=== PATIENT | female | born 1940 | race Caucasian/White ===

== ENCOUNTER → 2017-07-08 | Outpatient (CLI) | payer OTHER | LOC: FCPNEURO 23:30 | PROVIDERS: ATTEND Psychiatry & Neurology Sleep Medicine | DX: G47.33 Obstructive sleep apnea (adult) (pediatric) (principal) ==

== ENCOUNTER → 2017-08-05 | Outpatient (CLI) | payer OTHER | LOC: BHFA 14:45 | PROVIDERS: ATTEND Internal Medicine | DX: R00.2 Palpitations (principal); R01.1 Cardiac murmur, unspecified ==

== ENCOUNTER 2018-05-13 07:30 | Observation (INO) | payer OTHER ==
--- NOTE | 2018-05-09 08:54 | GHP ---
[f rep st] PREOP HISTORY AND PHYSICAL DATE OF ADMISSION: 05/13/2018 She will be an a.m. admission for surgery at [facility] on May 13, 2018. PROBLEM: Left knee arthritis. HISTORY OF PRESENT ILLNESS: The patient is a 77-year-old woman admitted for a left total knee arthro plasty. She has had progressive pain in her left knee for the past year. She has advanced medial co mpartment degenerative arthritis. Dr. oPrtillo did her right total arthroplasty in 2008. Her left knee is painful to walk and climb stairs. She is using Aleve. PAST MEDICAL HISTORY: She has angina. She has been worked up by her agriculturist and has been clear ed for surgery. She is also treated for hypertension. No history of DVT, hepatitis, MRSA infection, or bleeding problems. She had a sleep study and was told that she had mild sleep apnea but she did not as need a CPAP machine. MEDICATIONS: She takes a baby aspirin daily. Other medications: Lisinopril 5 mg per day, hydrochlo rothiazide 12.5 mg per day, metoprolol 25 mg per day. ALLERGIES: She has a questionable allergy to sulfa as a child. Metal allergy: None. Latex allergy : None. SOCIAL HISTORY: The patient does not smoke cigarettes and occasionally drinks alcohol. She is retir ed. She is a . She has a daughter in the area who is going to help her. FAMILY HISTORY: Positive for heart disease. PHYSICAL EXAMINATION: VITAL SIGNS: Height 5 feet 7 inches. Weight 150 pounds. BMI 23.5. EYES: C onjunctivae and sclerae are clear. Pupils are round and reactive. MOUTH: Good oral hygiene. No lo ose teeth. CHEST: Clear. HEART: Regular rhythm, no murmurs. EXTREMITIES: Pertinent findings [place] ited to her left knee. She has a small effusion. She lacks 5 degrees of full extension and flexes t o 110 degrees. She has mild pseudolaxity of her medial collateral ligament. IMAGING: Her films show advanced medial compartment degenerative arthritis of her left knee with mil d varus alignment. She has a properly sized right total arthroplasty on the right. IMPRESSION ON ADMISSION: 1. Left knee advanced medial compartment degenerative arthritis. 2. Nine years status post right total arthroplasty. 3. Treatment for hypertension. 4. History of coronary artery disease. PLAN: She will undergo a left total knee arthroplasty. The surgery has been described to her, inclu ding the risks, complications, expectations, and recovery time. I have stressed the importance of po stoperative physical therapy. I have advised her that approximately 85% of people get a very good re sult with a total knee replacement. A small percentage of people do not. All her questions have bee n answered and she consents to surgery. /[id number]/MODL
[~2018-05-13 07:30] MED LIST: POVIDONE-IODINE 20 ML in SODIUM CL IRRIG SOLUTION 500 ML IRR ONE; ROPIVACAINE 0.2% 80 MG, EPINEPHrine 0.2 MG, KETOROLAC TROMETHAMINE 30 MG in SYRINGE 0 ML IU ONE; TRANEXAMIC ACID 1,000 MG in NS 100 ML IV ONE; TRANEXAMIC ACID 3,000 MG in NS (SYRINGE) 50 ML IRR ONE
[2018-05-13] MEDS ORDERED: ONDANSETRON 4 MG/2 ML VIAL IVP ONE (07:48)
[2018-05-13] MEDS ORDERED: ceFAZolin 2 GM/DEXTROSE 100 ML IV ONE (07:48)
[2018-05-13] MEDS ORDERED: ACETAMINOPHEN 325 MG TAB PO ONE (07:48)
[2018-05-13] MEDS ORDERED: FAMOTIDINE 20 MG TAB PO ONE (07:48)
[2018-05-13] MEDS ORDERED: GABAPENTIN 300 MG CAP PO ONE (07:48)
[2018-05-13] MEDS ORDERED: DEXAMETHASONE 4 MG/ML VIAL IVP ONE (07:48)
[2018-05-13] MEDS ORDERED: LR 1,000 ML IV ONE (07:50)
[2018-05-13] MEDS ORDERED: VANCOMYCIN 1 GM VIAL ONE (09:00)
[2018-05-13] MEDS ORDERED: ceFAZolin 1 GM/5 ML SYR ONE (09:04)
[2018-05-13] MEDS ORDERED: LIDOCAINE 2% 100 MG/5 ML SYR ONE (09:09)
[2018-05-13] MEDS ORDERED: PROPOFOL/EMULSION 500 MG/50 ML BOTTLE IV ONE (09:09)
[2018-05-13] MEDS ORDERED: BUPIVACAINE/DEXTROSE 7.5MG/ML 2 ML SPINAL AMP SP ONE (09:12)
--- NOTE | 2018-05-13 09:17 | PDANEPAE ---
ANE History of Present Illness left knee OA ANE Past Medical History - Cardiovascular History Hx Hypertension: Yes Hx Arrhythmias: No Hx Chest Pain: No Hx Coronary Artery / Peripheral Vascular Disease: No Hx CHF / Valvular Disease: No Hx Palpitations: Yes Cardiovascular History Comment: HYPERLIPIDEMIA. HX OF LIFE LONG PALPITATIONS. 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 ARTHRITIS - Chronic Pain History Chronic Pain: Yes (LEFT KNEE) - Surgical History Prior Surgeries: 09/27/08 RIGHT TKA WITH OSAMR ANE Review of Systems Review of systems is: negative Review of Systems: - Exercise capacity METS (RN): 3 METS ANE Patient History - Allergies Allergies/Adverse Reactions: acetaminophen [From Tylenol] Allergy (Verified 05/13/18 09:48) severe itching Sulfa (Sulfonamide Antibiotics) Allergy (Verified 05/13/18 09:48) POSSIBLE ALLERGY - Home Medications Home medications: home medication list seen and reviewed Home Medications: Hydrochlorothiazide 12.5 mg PO DAILY 07/10/09 [Last Taken 05/12/18 08:00] Lisinopril 5 mg PO DAILY 07/10/09 [Last Taken 05/12/18 08:00] Aspirin 81mg (*) 05/06/18 [Last Taken 05/06/18] Herbals/Supplements -Info Only 05/06/18 [Last Taken 05/06/18] Metoprolol Tartrate 05/06/18 [Last Taken 05/11/18 20:00] - NPO status NPO Since - Liquids (Date): 05/13/18 NPO Since - Liquids (Time): 04:30 NPO Since - Solids (Date): 05/12/18 NPO Since - Solids (Time): 19:00 - Anes Hx Anes Hx: no prior problems - Smoking Hx Smoking Status: Never smoked - Alcohol Use Alcohol Use: None - Family Anes Hx Family Hx Anesthesia Complications: NONE ANE Labs/Vital Signs - Vital Signs Blood Pressure: 164/85 Heart Rate: 65 Respiratory Rate: 18 O2 Sat (%): 97 Height: 170.18 cm Weight: 68.039 kg ANE Physical Exam - Airway Neck exam: FROM Mallampati Score: Class 2 Mouth exam: normal dental/mouth exam - Pulmonary Pulmonary: no respiratory distress - Cardiovascular Cardiovascular: regular rate and rhythym - ASA Status ASA Status: II ANE Anesthesia Plan Anesthesia Plan: spinal Regional Anesthesia: continuous NB, adductor canal FNB
[2018-05-13] MEDS ORDERED: MIDAZOLAM 2 MG/2 ML VIAL ONE (10:00)
[2018-05-13] MEDS ORDERED: MIDAZOLAM 2 MG/2 ML VIAL IVP ONE (10:04)
--- NOTE | 2018-05-13 10:10 | PDHPUP ---
History & Physical Update H&P update statement: This history and physical update is based on an assessment of the patient which was completed after admission or registration (within 24 hours), but prior to the surgery/procedure. H&P update: H&P reviewed & patient examined, no change in patient's condition since H&P completed
[2018-05-13] MEDS ORDERED: ROPIVACAINE HCL 100 MG/20 ML INJ ONE (10:38)
--- NOTE | 2018-05-13 10:44 | POSTANESTH ---
Post Anesthetic Evaluation Cardiovascular Status: Normal, Stable Respiratory Status: Normal, Stable Level of Consciousness/Mental Status: Can Participate in Eval, Alert and Oriented Pain Control: Adequate, Prn Tx Ordered Nausea/Vomiting Control: Adequate, Prn Tx Ordered Complications Possibly Related to Anesthesia: None Noted
[2018-05-13] MEDS ORDERED: fentaNYL 100 MCG/2 ML INJ ONE ×2 (10:47→12:29)
[2018-05-13] MEDS ORDERED: PROPOFOL 200 MG/20 ML VIAL ONE (11:08)
--- NOTE | 2018-05-13 11:44 | POSTOPPROG ---
Post Op Note Date of Operation: 05/13/18 Surgeon: Arnie Cardoso Salesperson Burial Needs: Thais Anesthesiologist: Becky Anesthesia: IV Sedation, Spinal Post-op Diagnosis: left knee arthritis Procedure: R TKA Inf/Abcess present in the surg proc area at time of surgery?: No EBL: 50-100 (Adductor canal block in PACU with indwelling catheter.)
[2018-05-13] MEDS ORDERED: MAGNESIUM HYDROXIDE 30 ML UDCUP PO PRN (12:09)
[2018-05-13] MEDS ORDERED: ONDANSETRON DISINTEGRATING 4 MG TAB PO PRN (12:09)
[2018-05-13] MEDS ORDERED: POLYETHYLENE GLYCOL 3350 17 GM PKT PO PRN (12:09)
[2018-05-13] MEDS ORDERED: TEMAZEPAM 15 MG CAP PO PRN (12:09)
[2018-05-13] MEDS ORDERED: diphenhydrAMINE 25 MG CAP PO PRN (12:09)
[2018-05-13] MEDS ORDERED: CYCLOBENZAPRINE 10 MG TAB PO PRN (12:09)
[2018-05-13] MEDS ORDERED: DIPHENOXYLATE/ATROPINE LOMOTIL 1 TAB PO PRN (12:09)
[2018-05-13] MEDS ORDERED: LACTULOSE 20 GM/30 ML UDCUP PO PRN (12:09)
[2018-05-13] MEDS ORDERED: PROMETHAZINE HCL 25 MG/ML INJ IVP PRN (12:09)
[2018-05-13] MEDS ORDERED: BISACODYL 10 MG SUPP PR PRN (12:09)
[2018-05-13] MEDS ORDERED: PROMETHAZINE HCL 25 MG SUPPR PR PRN (12:09)
[2018-05-13] MEDS ORDERED: METOCLOPRAMIDE 10 MG/2 ML VIAL IVP PRN (12:09)
[2018-05-13] MEDS ORDERED: ONDANSETRON 4 MG/2 ML VIAL IVP PRN ×2 (12:09→12:21)
[2018-05-13] MEDS ORDERED: NS 500 ML IV PRN (12:09)
[2018-05-13] MEDS ORDERED: oxyCODONE IR 5 MG TAB PO PRN ×2 (12:09→12:21)
[2018-05-13] MEDS ORDERED: NALOXONE HCL 0.4 MG/ML INJ IVP PRN (12:21)
[2018-05-13] MEDS ORDERED: fentaNYL 100 MCG/2 ML INJ IVP PRN (12:21)
[2018-05-13] MEDS ORDERED: ALBUTEROL 3 ML DEYVIAL IH PRN (12:21)
[2018-05-13] MEDS ORDERED: HYDROmorphONE/DILAUDID 2 MG/ML INJ ONE (12:28)
[2018-05-13] MEDS: HYDROmorphONE/DILAUDID 2 MG/ML INJ IVP PRN ×2 (12:30→12:47)
--- NOTE | 2018-05-13 12:49 | GOP ---
[f rep st] OPERATIVE REPORT DATE OF OPERATION: 05/13/2018 SURGEON: Arnie Cardoso MD EXPERIMENTAL OUTBOARD MOTORS MECHANIC: Deuce Hamm and Humble Wynne. ANESTHESIA: Combination of Marcaine, spinal, IV sedation, and adductor canal block ANESTHESIOLOGIST: Bert Pena MD PREOPERATIVE DIAGNOSIS: Left knee severe degenerative arthritis with varus deformity. POSTOPERATIVE DIAGNOSIS: Left knee severe degenerative arthritis with varus deformity. PROCEDURE PERFORMED: 05/13/2018, a left total knee arthroplasty, cemented, Pritchett and Nephew Journey II, posterior stabilized. FINDINGS: ESTIMATED BLOOD LOSS: Following inflation of the tourniquet was about 100 cc. The sponge and needle count was correct on 2 occasions. She was awakened from anesthesia, transferred to her hospital [facility], and taken to the PACU in satisf actory condition. There were no recognized intraoperative complications. In the PACU, for additiona l postoperative pain control, Dr. Pena performed an adductor canal block with an indwelling seth ter. David Hamm and Humble Wynne acted as surgical assistants. Their assistance was of [facility] for safe completion of the procedure. DESCRIPTION OF PROCEDURE: The patient was given 2 g of IV Ancef preoperatively within 60 minutes of surgery. She also received 1000 mg of IV tranexamic acid. She was placed on the operating room tabl e and given spinal anesthesia with Marcaine by Dr. Pena. She was then placed supine and given IV sedation. A Patrick catheter was not used. She wore a KATIE stocking and an SCD on the nonoperative le g. Her left lower extremity was prepped with ChloraPrep from the upper thigh tourniquet to the tips of the toes. It was draped free using sterile sheets, stockinette, and Ioban plastic adhesive drape. The lower leg was wrapped with compressive Coban. The leg was exsanguinated with elevation and a 6 -inch compressive wrap, and the pneumatic tourniquet was inflated to 250 mmHg. The World Health Organization time-out was performed to verify the correct patient identity and the c orrect surgical side and site. The [place] time-out was also performed. The [facility] leg-holding device was sterilely attached to the operating room table and used throughout the procedure to help position the knee. A straight midline incision was made centered on the jay la. Subcutaneous tissues were sharply divided, and hemostasis was obtained using electrocautery. A medial subcutaneous flap was developed, and the capsule and synovium were opened in medial parapatell ar fashion. Extensive degenerative changes were present in her medial compartment and in the patello femoral joint. The medial capsule and periosteum were elevated off the rim of the medial tibial plat eau all the way around to the posteromedial corner. Her medial collateral ligament was released enou gh to balance the medial side of the knee and correct the varus deformity. In order to improve exposure, her patella was prepared first. The original thickness of the patella was measured. Peripheral osteophytes were removed. I cut a flat surface on the back of the patella. She was sized for a 38 mm round resurfacing patellar component. I removed enough bone from the pat freddy, such that the remaining bone plus the thickness of the patellar component recreated the origina l thickness of the patella. The composite thickness was 22 mm. The intramedullary alignment guide system was used to set up the distal femoral cut. The distal femu r was cut in 6 degrees of valgus. Because of a preoperative flexion contracture, and I was using a p osterior stabilized femoral component, I made a +2 mm cut on the distal femur. The sizing jig was us ed to determine proper femoral sizing. The size 4 was the proper size from medial to lateral. I had to shift the jig anteriorly 2 mm in order to avoid notching the anterior cortex. The 5-in-1 cutting block was applied, and the anterior and posterior condylar cuts and chamfer cuts were made. The fin al jig was used to remove the central portion of the distal femur to accommodate the posterior stabil ized femoral component. I was careful to determine proper rotation by referencing off Lenora line and other bony landmarks. Each cut was checked for accuracy. The femur was sized for a size 4 post erior stabilized component. Next, the tibia was prepared. The proximal tibial cut was made using the extramedullary alignment gu tavon system. The cut was made in just a few degrees of posterior slope. I was careful to achieve pro per varus and valgus alignment and proper rotation. The posterior compartment was cleared of menisca l remnants. Osteophytes were removed from the back of the femoral condyles. I checked the flexion a nd extension gaps, and they were equal and rectangular. The tibia was sized for a size 3 component. With the trial components in place, I selected an 11 mm polyethylene posterior stabilized tibial ins ert. The knee came to full extension flexed to 130 degrees. Her collateral ligaments were stable an d balanced in 90 degrees of flexion and full extension. The trial patellar button was applied, and t racking was checked. Tracking was excellent without any digital pressure. 40 cc of the joint anesthetic cocktail was injected into the posterior capsule, the quadriceps muscle and tendon areas, and the subcutaneous tissues along the skin edges. The surfaces were prepared for cementing. They were carefully cleaned with the pulsating lavage and thoroughly dried. A CarboJet device was used to blow-dry the cancellous surfaces. A double batch of high-viscosity methylmethacrylate cement with 2 g of powdered vancomycin was mixed. While it was st ill in a doughy state, all 3 components were cemented in place. Excess cement was removed before it hardened. The 11 mm trial insert was retried and was the proper thickness. The actual component was inserted a nd locked into place. The knee was thoroughly irrigated one final time with a dilute Betadine soluti on. The tourniquet was deflated, and the total tourniquet time was 54 minutes. 50 cc of tranexamic acid was irrigated into the wound. The wound was packed with a sponge and wrapped with a compressive wrap for few minutes. The vastus medialis portion of the extensor mechanism was repaired with several interrupted figure-of -eight #2 FiberWire sutures. The capsule and synovium were closed first with multiple interrupted fi [id number] 0 PDS sutures, followed by a running #2 barbed Ethicon Stratafix PDO suture. Subcutane ous tissues were closed with a running 0 barbed Ethicon Stratafix Monoderm suture. The skin was clos ed with a running 3-0 barbed Ethicon Stratafix Monoderm subcuticular suture. The skin was sealed wit h 0.5 inch Steri-Strips. The wound was covered with a large Mepilex waterproof dressing, and the kne e was wrapped with Kerlix and 6 inch compressive wrap. A long-leg KATIE stocking and SCD were applied, followed by the cooling device. The patient wore a stocking and SCD on the nonoperative leg during the procedure. The sacral Mepilex dressing was applied. I used a size 4 Pritchett and Nephew Oxinium cemented posterior stabilized femoral component, a size 3 ce mented tibial base plate, an 11 mm posterior stabilized tibial insert, and a 38 mm cemented round all -polyethylene resurfacing component. Copy requested to: [place] /[id number]/MODL
[2018-05-13] MEDS: traMADol 50 MG TAB PO PRN (14:15)
[2018-05-13] MEDS: KETOROLAC 15 MG/1 ML SDV IVP SCH (17:18)
[2018-05-13] MEDS: LR 1,000 ML IV SCH (17:18)
[2018-05-13] MEDS: ceFAZolin 2 GM/DEXTROSE 100 ML IV SCH (17:18)
[2018-05-13] MEDS ORDERED: METOPROLOL TARTRATE 25 MG TAB PO SCH (21:00)
[2018-05-13] MEDS: FAMOTIDINE 20 MG TAB PO SCH (21:06)
[2018-05-13] MEDS: SENNOSIDES/DOCUSATE SODIUM TAB PO SCH (21:11)
[2018-05-13] MEDS: ASPIRIN 325 MG TAB PO SCH (21:13)
[2018-05-14] MEDS: KETOROLAC 15 MG/1 ML SDV IVP SCH ×3 (00:41→13:40)
[2018-05-14] MEDS: LR 1,000 ML IV SCH (00:42)
[2018-05-14] MEDS: ceFAZolin 2 GM/DEXTROSE 100 ML IV SCH (02:23)
[2018-05-14] MEDS ORDERED: ROPIVACAINE HCL 150 MG/30 ML INJ ONE (07:07)
[2018-05-14] MEDS ORDERED: FERROUS SULFATE 325 MG TAB PO SCH (08:00)
--- NOTE | 2018-05-14 08:03 | PDPAINCON ---
Pain Management Consultation Patient referred by : Janae - Subjective Pain at rest (/10): 1 Pain with activity (/10): 2 Pain is: low, well controlled Side effects include: No drowsy, No itchiness, No nausea, No nausea/vomiting, No rash Activity: able to ambulate - Objective Technique: continuous peripheral nerve block (adductor canal) Continuous infusion: ropivicaine (0.5%) Catheter site: clean, dry, intact, no erythema/edema/exudate Sensory and motor exam: consistent with block - Assessment/Plan Assessment/Plan: pain well-controlled, continue current mgmt (POD 1 s/p TKA with AC catheter in place, pain very well controlled. Re-dosed today with ropivacaine 0.5% 25ml and catheter removed uneventfully.)
[2018-05-14] MEDS ORDERED: LIPID EMULSION 20% 100 ML IV PRN (08:25)
[2018-05-14] MEDS: ASPIRIN 325 MG TAB PO SCH (08:34)
[2018-05-14] MEDS: FAMOTIDINE 20 MG TAB PO SCH (08:34)
[2018-05-14] MEDS: SENNOSIDES/DOCUSATE SODIUM TAB PO SCH (08:34)
[2018-05-14] MEDS ORDERED: LISINOPRIL 5 MG TAB PO SCH (09:00)
[2018-05-14] MEDS ORDERED: HYDROCHLOROTHIAZIDE 25 MG TAB PO SCH (09:00)
--- NOTE | 2018-05-14 11:24 | SOAPPROG ---
SOAP Progress Note Assessment/Plan: Assessment: Afebrile. Awake and alert. Walking in the melgar. She has been cleared by physical therapy for stairs. Minimal pain so far. Hemoglobin and hematocrit are good. Postop films look excellent. Plan: Standing long alignment film. Discharge later today. 05/14/18 11:22 Objective: Vital Signs Temp Pulse Resp BP Pulse Ox 36.9 C 62 22 H 110/60 92 05/14/18 08:00 05/14/18 10:30 05/14/18 10:30 05/14/18 10:30 05/14/18 10:30 Laboratory Results 05/14/18 04:42 05/13/18 05/14/18 05/15/18 05:59 05:59 05:59 Intake Total 3100 Output Total 1450 Balance 1650 ICD10 Worksheet Patient Problems: Problems Problem Status Onset Arthritis of knee, left Acute - ICD10 Problem Qualifiers (1) Arthritis of knee, left
--- NOTE | 2018-05-14 11:58 | GDS ---
[f rep st] DISCHARGE SUMMARY ADMISSION DIAGNOSIS: Left knee severe degenerative arthritis with varus deformity. DISCHARGE DIAGNOSIS: Left knee severe degenerative arthritis with varus deformity. OPERATION PERFORMED: 05/13/2018, a left total knee arthroplasty. POSTOPERATIVE COMPLICATIONS: None. CONDITION ON DISCHARGE: Improved. DESCRIPTION OF HOSPITAL COURSE: The patient was admitted to the hospital on the morning of surgery. The same day, under a combination of Marcaine spinal, IV sedation, and adductor canal block she unde rwent a left total knee arthroplasty. Postoperatively, she was treated with multimodal DVT prophylax is, including aspirin. On the first postoperative day, her hemoglobin and hematocrit were 11.7 and 3 5.3. She was seen by Physical Therapy and made good progress with ambulation and stairs. By the abel e of discharge, she was afebrile, and she was walking safely with a walker. She may progress to full weightbearing on the left as tolerated. DISPOSITION: The patient discharged to her home. Her daughter will be assisting her. She will go t o outpatient physical therapy at my office. She may progress to full weightbearing on the left. Con sulyue aspirin 325 mg p.o. daily for 21 days. Continue KATIE stockings for 1 week. She has prescriptio ns for tramadol and Celebrex for pain control. She is allergic to Tylenol. I will see her back in t office on May 26, 2018. If there are any problems, she is to call me at the office. Copy requested to: [place] /[id number]/MODL
[2018-05-14 12:22] VITALS: BP 127/61
--- NOTE | 2018-05-14 13:38 | ASMTLACE ---
LACE Length of stay for Answers: 2 days current admission Acuity / Level of Answers: No Care: Did the patient have an inpatient admission? Comorbidities - select Answers: Opioid dependence all that apply / Chronic pain Other Notes: HTN; HLD # of Emergency department Answers: 0 visits in the last 6 months Score: 7 Date Signed: 05/14/2018 01:37 PM Electronically Signed By:MARILEE Navarro
--- NOTE | 2018-05-14 13:40 | ASMTCMCOM ---
CM Note CM Note Notes: Pt had planne knee surgery. PT and MD rec outpatient PT. No CM d/c needs identified. Date Signed: 05/14/2018 01:39 PM Electronically Signed By:MARILEE Navarro
[2018-05-14] MEDS: traMADol 50 MG TAB PO PRN (13:49)
== END 2018-05-14 14:44 | disposition home or self-care (01) ==
LOC: FSGY 07:30 → F1N 12:10 → F3N 13:22
PROVIDERS: ADMIT Orthopaedic Surgery; ATTEND Orthopaedic Surgery
PROC: 0SRD0J9 Replacement of Left Knee Joint with Synthetic Substitute, Cemented, Open Approach (ICD-10-PCS; principal; 2018-05-13 10:15)
DX: M17.12 Unilateral primary osteoarthritis, left knee (principal); M21.162 Varus deformity, not elsewhere classified, left knee; I20.9 Angina pectoris, unspecified; E78.5 Hyperlipidemia, unspecified; I10 Essential (primary) hypertension; Z79.82 Long term (current) use of aspirin; Z96.651 Presence of right artificial knee joint; Z88.2 Allergy status to sulfonamides
CPT/HCPCS: 27447; 73560; 77073; 88311; 97110; 97116; 97161; 97165; 97530; C1713; C1776; J0171; J0690; J1100; J1170; J1885; J2001; J2250; J2405; J2704; J2795; J3010; J3370

== ENCOUNTER 2018-06-02 10:15 | Inpatient (IN) | payer OTHER ==
[2018-06-02] MEDS ORDERED: ASPIRIN 81 MG CHEWABLE TAB PO ONE (10:52)
--- NOTE | 2018-06-02 10:53 | EDPHY ---
HPI/HX/ROS/PE/MDM Narrative: CHIEF COMPLAINT: Weakness, shortness of breath HISTORY OF PRESENT ILLNESS: This patient is a 77-year-old female who is three weeks s/p left knee arthroplasty with history of hypertension and mild hyperlipidemia who presents with weakness and shortness of breath. She states she had a "heart incident" on Saturday in the afternoon. She had been lying down, relaxing and watching TV. She got up and walked a short distance, then developed some chest pressure and nausea. This sensation resolved after about 20 minutes. She denies having any discomfort in her jaw or arms. She has had severe exertional shortness of breath since that time with mild activities. Taking a deep breath causes her to cough. She endorses some chills over the past few days. No fever, vomiting, diarrhea, urinary complaints, headache, lightheadedness. She denies history of clots or clotting disorders. She is a nonsmoker. No history of diabetes. She takes 325mg ASA daily but is not otherwise anticoagulated. REVIEW OF SYSTEMS: A comprehensive 10 system review of systems is otherwise negative aside from elements mentioned in the history of present illness and medical decision making. PAST MEDICAL HISTORY: Hypertension (metoprolol). Mild hyperlipidemia. SOCIAL HISTORY: Daughter at bedside. Lives in [place]. Retired. VITAL SIGNS: Reviewed by me GENERAL: Well-developed, well-nourished, resting comfortably in no respiratory distress, although she does seem tired. HEENT: Atraumatic. Eyes: No icterus, no injection. Mouth: moist mucous membranes. No erythema or lesions. Neck: supple with no adenopathy. LUNGS: Clear to auscultation bilaterally, no wheezes, rhonchi or rales. CARDIAC: Regular rate and rhythm, no rubs, murmurs or gallops. ABDOMEN: Soft, nontender, nondistended, bowel sounds normal. BACK: No CVA tenderness. EXTREMITIES: Well-healing surgical incision over left knee. No trauma. Very minimal lower extremity swelling diffusely on the left consistent with postoperative changes. NEURO: Alert and oriented, grossly nonfocal. SKIN: Warm and dry, no rash. PSYCHIATRIC: Normal mentation, no agitation. Portions of this note were transcribed by a medical and scientific illustrator. I personally performed a history, physical exam, medical decision making, and confirmed accuracy of information the transcribed note. ED Course: 77 y/o female presents with shortness of breath, weakness, which developed following an episode of chest pressure and nausea on Saturday, two days ago. Plan for EKG, chest x-ray, labs including CBC, chemistries, POC troponin, D- dimer, coag panel. 12-LEAD EKG: Please see the full report in [facility]. My interpretation: sinus rhythm with abnormal T waves in diffuse leads. Consider ischemia - plan to consult with cardiology urgently. 11:07 Spoke with PABLO Corey for Cardiology. Cardiology to consult regarding patient's abnormal EKG. Patient's bedside troponin was 0.03. 11:30 D-dimer elevated at 19.49. Plan for CTA chest. Spoke with Dr. Magaña, assistant center manager. Patient's old EKGs do not have the acute T -wave abnormalities seen today. Patient is currently undergoing CT scan of the chest. Consider echocardiogram to evaluate for right sided heart strain. 11:35 Spoke with hospitalist service. Dr. Finney accepts admission for weakness, shortness of breath, abnormal EKG and probable pulmonary embolism. 12:[address] Donovan, radiologist. Chest CTA reveals moderate to large volume of acute thrombo-pulmonary embolic disease throughout the right and left lung. No saddle embolism. See report for details. Plan to administer Heparin for anticoagulation per standard ED protocol. Dr. Magaña at bedside. Review of the echocardiogram demonstrates is right- sided pressures with evidence of right heart strain. Dr. Magaña consulted with pulmonary. At issue is whether the patient should have tPA for her pulmonary embolism in the setting of the evidence of right-sided heart strain and potential ischemia. However, the patient has had surgery 3 [address] ago[address] Please see Dr Magaña's reports as well as inpatient medicine notes. Critical care time spent by me, Dr. Knott exclusively with this patient was 35 minutes, exclusive of PA time and exclusive of procedures. The organ system at risk was cardiac and pulmonary and I gave IV fluids, heparin, consult it with Cardiology, to prevent worsening of the patients condition. Critical care time included obtaining history, performing a physical exam, bedside monitoring of interventions, collecting and interpreting tests and discussion with consultants but not including time spent performing procedures. MDM: Differential diagnosis for the patient's shortness of breath was considered including but not limited to pulmonary infectious processes, COPD exacerbation, pulmonary emboli, pulmonary edema, congestive heart failure, and cardiac causes. - Data Points Imaging Results: Imaging Impressions Chest X-Ray 06/02/18 10:49 Impression: Mild bronchitis. No pneumonia or effusion. Imaging: Discussed imaging studies w/ hotel controller Radiologist Laboratory Results: Laboratory Results 06/02/18 10:30 06/02/18 10:30 06/02/18 06/02/18 06/02/18 10:51 10:30 10:30 WBC RBC Hgb Hct MCV MCH MCHC RDW Plt Count MPV Neut % (Auto) Lymph % (Auto) [place] % (Auto) Eos % (Auto) Baso % (Auto) Nucleat RBC Rel Count Absolute Neuts (auto) Absolute Lymphs (auto) Absolute Monos (auto) Absolute Eos (auto) Absolute Basos (auto) Absolute Nucleated RBC Immature Gran % Immature Gran # PT 13.7 SEC SEC (12.0-15.0) INR 1.03 (0.83-1.16) APTT 29.8 SEC SEC (23.0-38.0) D-Dimer 19.49 ug/mLFEU H ug/mLFEU (0.00-0.50) Sodium 134 mEq/L L mEq/L (135-145) Potassium 4.8 mEq/L mEq/L (3.5-5.2) Chloride 102 mEq/L mEq/L (97-110) Carbon Dioxide 22 mEq/l mEq/l (22-31) Anion Gap 10 mEq/L mEq/L (6-14) BUN 26 mg/dL H mg/dL (7-23) Creatinine 0.8 mg/dL mg/dL (0.6-1.0) Estimated GFR > 60 Glucose 113 mg/dL H mg/dL (70-100) Calcium 8.9 mg/dL mg/dL (8.5-10.4) POC Troponin I 0.04 ng/mL ng/mL (0.00-0.08) Troponin I 0.028 ng/mL ng/mL (0.000-0.034) Specimen Hemolysis 144 06/02/18 10:30 WBC 9.00 10^3/uL 10^3/uL (3.80-9.50) RBC 4.48 10^6/uL 10^6/uL (4.18-5.33) Hgb 13.7 g/dL g/dL (12.6-16.3) Hct 43.4 % % (38.0-47.0) MCV 96.9 fL fL (81.5-99.8) MCH 30.6 pg pg (27.9-34.1) MCHC 31.6 g/dL L g/dL (32.4-36.7) RDW 13.5 % % (11.5-15.2) Plt Count 242 10^3/uL 10^3/uL (150-400) MPV 10.4 fL fL (8.7-11.7) Neut % (Auto) 80.5 % H % (39.3-74.2) Lymph % (Auto) 10.3 % L % (15.0-45.0) [place] % (Auto) 7.8 % % (4.5-13.0) Eos % (Auto) 0.9 % % (0.6-7.6) Baso % (Auto) 0.2 % L % (0.3-1.7) Nucleat RBC Rel Count 0.0 % % (0.0-0.2) Absolute Neuts (auto) 7.24 10^3/uL H 10^3/uL (1.70-6.50) Absolute Lymphs (auto) 0.93 10^3/uL L 10^3/uL (1.00-3.00) Absolute Monos (auto) 0.70 10^3/uL 10^3/uL (0.30-0.80) Absolute Eos (auto) 0.08 10^3/uL 10^3/uL (0.03-0.40) Absolute Basos (auto) 0.02 10^3/uL 10^3/uL (0.02-0.10) Absolute Nucleated RBC 0.00 10^3/uL 10^3/uL (0-0.01) Immature Gran % 0.3 % % (0.0-1.1) Immature Gran # 0.03 10^3/uL 10^3/uL (0.00-0.10) PT INR APTT D-Dimer Sodium Potassium Chloride Carbon Dioxide Anion Gap BUN Creatinine Estimated GFR Glucose Calcium POC Troponin I Troponin I Specimen Hemolysis Medications Given: Discontinued Medications Aspirin (Aspirin) 324 mg PO EDNOW ONE Stop: 06/02/18 10:53 Last Admin: 06/02/18 10:59 Dose: 324 mg Heparin Sodium (Porcine) (Heparin Injection) 0 unit IVP EDNOW ONE Stop: 06/02/18 12:18 Last Admin: 06/02/18 12:54 Dose: 5,600 unit Heparin Sodium (Porcine) (Heparin 50 Units/Ml (Premix)) 500 mls @ 0 mls/hr IV EDNOW ONE; Per Protocol PRN Reason: Protocol Stop: 06/02/18 12:18 Last Admin: 06/02/18 12:55 Dose: 500 mls Point of Care Test Results: Chemistry 06/02/18 10:51 POC Troponin I 0.04 ng/mL ng/mL (0.00-0.08) General Time Seen by Provider: 06/02/18 10:34 Initial Vital Signs: Initial Vital Signs Temperature (C) 36.4 C 06/02/18 10:24 Heart Rate 95 06/02/18 10:24 Respiratory Rate 18 06/02/18 10:24 Blood Pressure 122/81 H 06/02/18 10:24 O2 Sat (%) 95 06/02/18 10:24 O2 Delivery Mode Room Air Allergies/Adverse Reactions: acetaminophen [From Tylenol] Allergy (Verified 06/02/18 10:23) severe itching Sulfa (Sulfonamide Antibiotics) Allergy (Verified 06/02/18 10:23) POSSIBLE ALLERGY Home Medications: Medication Instructions Recorded Hydrochlorothiazide [HCTZ (*)] 12.5 mg PO DAILY 07/10/09 Lisinopril [Zestril 5 mg (*)] 5 mg PO DAILY 07/10/09 Metoprolol Tartrate [Lopressor 25 25 mg PO HS 05/06/18 mg (*)] Aspirin [Aspirin 325 mg (*)] 325 mg PO DAILY #21 tab 05/14/18 Herbals/Supplements -Info Only 1 ea PO DAILY 06/02/18 Naproxen Sodium [Aleve 220 MG (*)] 220 mg PO BID PRN 06/02/18 Departure - Departure Disposition: [facility] Acute Clinical Impression: right sided heart strain Pulmonary embolism Qualifiers: Pulmonary embolism type: unspecified Chronicity: acute Acute cor pulmonale presence: without acute cor pulmonale Qualified Code(s): I26.99 - Other pulmonary embolism without acute cor pulmonale Condition: Serious Report Scribed for: Yolanda Knott Report Scribed by: Radha Fontenot Date of Report: 06/02/18 Time of Report: 16:23
[2018-06-02 11:01] LABS: PLATELET COUNT 242 10^3/uL (150-400)
[2018-06-02] MEDS ORDERED: IOPAMIDOL (ISOVUE 370) 100 ML BTL IV ONE (11:44)
[2018-06-02] MEDS ORDERED: HEPARIN 10,000 UNIT/10 ML MDV (1,000 UNIT/ML) IVP ONE (12:17)
[2018-06-02] MEDS ORDERED: HEPARIN/DEXTROSE 500 ML IV ONE (12:17)
[2018-06-02] MEDS ORDERED: ONDANSETRON DISINTEGRATING 4 MG TAB PO PRN (12:35)
[2018-06-02] MEDS ORDERED: ONDANSETRON 4 MG/2 ML VIAL IVP PRN (12:35)
--- NOTE | 2018-06-02 12:42 | PDGENHP ---
<Kassidy Goins - Last Filed: 06/02/18 13:41> History and Physical - Chief Complaint Exertional shortness of breath, chest heaviness - History of Present Illness HPI: 77 y/o female with hx of hypertension and hyperlipidemia presenting with exertional shortness of breath and chest heaviness. 3 weeks prior, she had a left total knee arthroplasty. On Saturday, she was relaxing and watching television. She got up and felt a substernal chest heaviness and nausea, general malaise. It resolved after 20 minutes. However, ever since then, she experienced exertional shortness of breath with daily activities like "putting my pants on," or "walking around the house." D-Dimer was 19.49 and chest CTA reveal moderate to large volume of acute thrombopulmonary embolic disease throughout the right and left lung. No saddle embolism or evidence of right heart strain. She is being admitted for treatment of PE and monitoring. Past Medical History 1. Hypertension 2. Hyperlipidemia 3. Mild sleep apnea (no CPAP) Past Surgical History 1. Left Total Knee Arthroplasty (05/13/18) 2. Right Total Knee Arthroplasty (2008) Social 1. . Retired. 2. Denies tobacco or illicit drug use. Occasional drinks alcohol. History Information - Allergies/Home Medication List Allergies/Adverse Reactions: acetaminophen [From Tylenol] Allergy (Verified 06/02/18 10:23) severe itching Sulfa (Sulfonamide Antibiotics) Allergy (Verified 06/02/18 10:23) POSSIBLE ALLERGY Home Medications: Hydrochlorothiazide [HCTZ (*)] 12.5 mg PO DAILY 07/10/09 [Last Taken 06/02/18] Lisinopril [Zestril 5 mg (*)] 5 mg PO DAILY 07/10/09 [Last Taken 06/02/18] Metoprolol Tartrate [Lopressor 25 mg (*)] 25 mg PO HS 05/06/18 [Last Taken 06/01] Herbals/Supplements -Info Only 1 ea PO DAILY 06/02/18 [Last Taken Unknown] Naproxen Sodium [Aleve 220 MG (*)] 220 mg PO BID PRN 06/02/18 [Last Taken Unknown] I have personally reviewed and updated: family history, medical history, social history, surgical history Past Medical History: See HPI list - Surgical History Additional surgical history: See HPI list - Family History Additional family history: Congestive Heart Failure. Emphysema. Breast Cancer - Social History Smoking Status: Never smoked Alcohol Use: Occasionally Drug Use: None Review of Systems Review of Systems: ROS: 10pt was reviewed & negative except for what was stated in HPI & below Physical Exam Physical Exam: Lab data and imaging were reviewed. Case discussed with admitting physician, Dr. Tj Finney D-Dimer: 19.49 Na: 134 BUN/Cr: 26/0.8 Troponin: 0.04 EKG: Sinus rhythm, abnormal T-waves Echo: pending Chest CTA: see HPI CXR: No pneumonia or effusion Temp Pulse Resp BP Pulse Ox 36.4 C 82 16 112/74 95 06/02/18 10:24 06/02/18 11:39 06/02/18 11:39 06/02/18 11:39 06/02/18 11:39 Constitutional: no apparent distress, appears nourished, not in pain Eyes: PERRL, anicteric sclera, EOMI Ears, Nose, Mouth, Throat: moist mucous membranes, hearing normal, ears appear normal, no oral mucosal ulcers Cardiovascular: regular rate and rhythym, no murmur, rub, or gallop, No edema Peripheral Pulses: 2+: dorsalis-pedis (R) (Radial 2+), dorsalis-pedis (L) ( Radial 2+) Respiratory: no respiratory distress, no rales or rhonchi, clear to auscultation Gastrointestinal: normoactive bowel sounds, soft, non-tender abdomen, no palpable masses Genitourinary: no bladder fullness, no bladder tenderness Skin: warm, normal color, no rashes or abrasions, no fluctuance, no induration, other (Left surgical incision - steri strips, C/D/I), No mottled Musculoskeletal: full muscle strength, no muscle tenderness, normal joint ROM, no joint effusions Neurologic: AAOx3, sensation intact bilaterally, CN II-XII Intact Psychiatric: interacting appropriately, not anxious, not encephalopathic, thought process linear Lymph, Heme, Immunologic: no cervical LAD, no supraclavicular LAD Lab Data & Imaging Review 06/02/18 10:30 06/02/18 10:30 WBC 9.00 10^3/uL (3.80-9.50) 06/02/18 10:30 RBC 4.48 10^6/uL (4.18-5.33) 06/02/18 10:30 Hgb 13.7 g/dL (12.6-16.3) 06/02/18 10:30 Hct 43.4 % (38.0-47.0) 06/02/18 10:30 MCV 96.9 fL (81.5-99.8) 06/02/18 10:30 MCH 30.6 pg (27.9-34.1) 06/02/18 10:30 MCHC 31.6 g/dL (32.4-36.7) L 06/02/18 10:30 RDW 13.5 % (11.5-15.2) 06/02/18 10:30 Plt Count 242 10^3/uL (150-400) 06/02/18 10:30 MPV 10.4 fL (8.7-11.7) 06/02/18 10:30 Neut % (Auto) 80.5 % (39.3-74.2) H 06/02/18 10:30 Lymph % (Auto) 10.3 % (15.0-45.0) L 06/02/18 10:30 [place] % (Auto) 7.8 % (4.5-13.0) 06/02/18 10:30 Eos % (Auto) 0.9 % (0.6-7.6) 06/02/18 10:30 Baso % (Auto) 0.2 % (0.3-1.7) L 06/02/18 10:30 Nucleat RBC Rel Count 0.0 % (0.0-0.2) 06/02/18 10:30 Absolute Neuts (auto) 7.24 10^3/uL (1.70-6.50) H 06/02/18 10:30 Absolute Lymphs (auto) 0.93 10^3/uL (1.00-3.00) L 06/02/18 10:30 Absolute Monos (auto) 0.70 10^3/uL (0.30-0.80) 06/02/18 10:30 Absolute Eos (auto) 0.08 10^3/uL (0.03-0.40) 06/02/18 10:30 Absolute Basos (auto) 0.02 10^3/uL (0.02-0.10) 06/02/18 10:30 Absolute Nucleated RBC 0.00 10^3/uL (0-0.01) 06/02/18 10:30 Immature Gran % 0.3 % (0.0-1.1) 06/02/18 10:30 Immature Gran # 0.03 10^3/uL (0.00-0.10) 06/02/18 10:30 D-Dimer 19.49 ug/mLFEU (0.00-0.50) H 06/02/18 10:30 Sodium 134 mEq/L (135-145) L 06/02/18 10:30 Potassium 4.8 mEq/L (3.5-5.2) 06/02/18 10:30 Chloride 102 mEq/L (97-110) 06/02/18 10:30 Carbon Dioxide 22 mEq/l (22-31) 06/02/18 10:30 Anion Gap 10 mEq/L (6-14) 06/02/18 10:30 BUN 26 mg/dL (7-23) H 06/02/18 10:30 Creatinine 0.8 mg/dL (0.6-1.0) 06/02/18 10:30 Estimated GFR > 60 06/02/18 10:30 Glucose 113 mg/dL (70-100) H 06/02/18 10:30 Calcium 8.9 mg/dL (8.5-10.4) 06/02/18 10:30 POC Troponin I 0.04 ng/mL (0.00-0.08) 06/02/18 10:51 Troponin I 0.028 ng/mL (0.000-0.034) 06/02/18 10:30 Specimen Hemolysis 144 06/02/18 10:30 Assessment & Plan Plan: 77 y/o female with hx of hypertension and hyperlipidemia as well as recent surgery to her left knee presents with 2 days worth of exertional shortness of breath, chest heaviness and nausea. Upon imaging, she has pulmonary embolisms. 1. Exertional shortness of breath and chest heaviness 2/2 pulmonary embolisms confirmed with chest CTA: I suspect this developed s/p L TKA. Her only medication was ASA. -Received ASA in ED -Heparin bolus + drip initiated in ED; will continue heparin drip throughout night; transition off in AM and place on PO AC -Cont tele/pulse ox monitoring -First troponin negative 0.04. Cycle x 2 more tonight -Echo pending; last ECHO in 07/2017 revealed normal global systolic LV function and EF at 66%. Mild AVR. 2. Abnormal EKG: suspected cause of abnormality is PE -See above -Will repeat EKG tonight to observe possible change with heparin drip treatment 3. Left surgical knee: Her pain has been well-controlled with the use of Tylenol , Aleve, and Motrin. Since surgery, she has completed 2 sessions of PT. -PT/OT to evaluate -BUN/Cr: 26/0.8; pre-renal, most likely from acute use of NSAIDs. Holding her naproxen and will give Tylenol for pain (she reports she is not allergic to Tylenol however occasionally will experience minor pruritus) and ice packs. Will give IVF x 2 bags. -CBC/CMP in AM 4. Hypertension: stable. On HCTZ, Lisinopril, and metoprolol Diet: Regular VTE ppx: SCDs, Heparin drip Code: Full Dispo: Admit to obs <Tj Finney - Last Filed: 06/02/18 21:06> History and Physical - History of Present Illness Review of Systems Review of Systems: Physical Exam Physical Exam: Temp Pulse Resp BP Pulse Ox 36.9 C 90 14 110/67 94 06/02/18 20:00 06/02/18 20:00 06/02/18 20:00 06/02/18 20:00 06/02/18 20:00 O2 (L/minute) 2 Lab Data & Imaging Review 06/02/18 10:30 06/02/18 10:30 WBC 9.00 10^3/uL (3.80-9.50) 06/02/18 10:30 RBC 4.48 10^6/uL (4.18-5.33) 06/02/18 10:30 Hgb 13.7 g/dL (12.6-16.3) 06/02/18 10:30 Hct 43.4 % (38.0-47.0) 06/02/18 10:30 MCV 96.9 fL (81.5-99.8) 06/02/18 10:30 MCH 30.6 pg (27.9-34.1) 06/02/18 10:30 MCHC 31.6 g/dL (32.4-36.7) L 06/02/18 10:30 RDW 13.5 % (11.5-15.2) 06/02/18 10:30 Plt Count 242 10^3/uL (150-400) 06/02/18 10:30 MPV 10.4 fL (8.7-11.7) 06/02/18 10:30 Neut % (Auto) 80.5 % (39.3-74.2) H 06/02/18 10:30 Lymph % (Auto) 10.3 % (15.0-45.0) L 06/02/18 10:30 [place] % (Auto) 7.8 % (4.5-13.0) 06/02/18 10:30 Eos % (Auto) 0.9 % (0.6-7.6) 06/02/18 10:30 Baso % (Auto) 0.2 % (0.3-1.7) L 06/02/18 10:30 Nucleat RBC Rel Count 0.0 % (0.0-0.2) 06/02/18 10:30 Absolute Neuts (auto) 7.24 10^3/uL (1.70-6.50) H 06/02/18 10:30 Absolute Lymphs (auto) 0.93 10^3/uL (1.00-3.00) L 06/02/18 10:30 Absolute Monos (auto) 0.70 10^3/uL (0.30-0.80) 06/02/18 10:30 Absolute Eos (auto) 0.08 10^3/uL (0.03-0.40) 06/02/18 10:30 Absolute Basos (auto) 0.02 10^3/uL (0.02-0.10) 06/02/18 10:30 Absolute Nucleated RBC 0.00 10^3/uL (0-0.01) 06/02/18 10:30 Immature Gran % 0.3 % (0.0-1.1) 06/02/18 10:30 Immature Gran # 0.03 10^3/uL (0.00-0.10) 06/02/18 10:30 PT 13.7 SEC (12.0-15.0) 06/02/18 10:30 INR 1.03 (0.83-1.16) 06/02/18 10:30 APTT 29.8 SEC (23.0-38.0) 06/02/18 10:30 D-Dimer 19.49 ug/mLFEU (0.00-0.50) H 06/02/18 10:30 Heparin Anti-Xa, Unfract 0.86 IU/mL (0.32-0.67) H* 06/02/18 18:45 Sodium 134 mEq/L (135-145) L 06/02/18 10:30 Potassium 4.8 mEq/L (3.5-5.2) 06/02/18 10:30 Chloride 102 mEq/L (97-110) 06/02/18 10:30 Carbon Dioxide 22 mEq/l (22-31) 06/02/18 10:30 Anion Gap 10 mEq/L (6-14) 06/02/18 10:30 BUN 26 mg/dL (7-23) H 06/02/18 10:30 Creatinine 0.8 mg/dL (0.6-1.0) 06/02/18 10:30 Estimated GFR > 60 06/02/18 10:30 Glucose 113 mg/dL (70-100) H 06/02/18 10:30 Calcium 8.9 mg/dL (8.5-10.4) 06/02/18 10:30 POC Troponin I 0.02 ng/mL (0.00-0.08) 06/02/18 15:26 Troponin I 0.028 ng/mL (0.000-0.034) 06/02/18 10:30 Specimen Hemolysis 144 06/02/18 10:30 Assessment & Plan Assessment: Pulmonary embolism (Acute) Patient is a relatively healthy 77 year old female with pmh of HTN, recent surgery on left knee who presented with chest heaviness over the last week. ECG concerning for strain pattern. D dimer substantially elevated. CTA chest showing very large (not saddle) emboli. she is hemodynamically stable. she is not tachycardic or hypoxic. examination, aside from left leg swelling is reassuring. Plan on starting unfractionated heparin gtt, monitor in ICU overnight and if her hemodynamics change, consider thrombolysis. Other issues per Yolanda Goins ENVIRONMENTAL PLANNING ENGINEER. Tj Finney MD I spent over 60 minutes of critical care time on the evaluation and managemetn of this patient with over half spento n direct patient care.
[2018-06-02 12:56] LABS: INR 1.03 (0.83-1.16); PROTIME(PATIENT) 13.7 SEC (12.0-15.0)
[2018-06-02] MEDS ORDERED: ACETAMINOPHEN 325 MG TAB PO PRN (13:20)
[2018-06-02] MEDS ORDERED: HEPARIN/DEXTROSE 500 ML IV SCH (13:30)
[2018-06-02] MEDS ORDERED: HEPARIN 10,000 UNIT/10 ML MDV (1,000 UNIT/ML) IVP PRN (13:52)
--- NOTE | 2018-06-02 14:02 | ECHO ---
[email or web address] [address] [address] Main: [phone] Fax: [email or web address] Echocardiogram Name: NELLY GUZMAN MR#: [id number] Study Date: 06/02/2018 Study Time: 12:27 PM Date of : 1940 Age: 77 year(s) Height: 170.2 cm (67 in.) Weight: 70.31 kg (155 lb.) BSA: 1.81 m2 Gender: Female Examination: Echo Indication: CP/SOB, R/O RV clot, (PE) Image Quality: Fair Contrast: Requested by: Yolanda Knott BP: 112 mmHg/74 mmHg Heart Rate: Rhythm: Indication: CP/SOB, R/O RV clot, (PE) Procedure Staff Health Program Analyst: Kate Villatoro [facility] Reading Physician: Juliano Magaña MD Requesting Provider: Conclusions: The left ventricle cavity is small. No LV hypertrophy. Global hypercontractility of the left ventricle. The ejection fraction is estimated to be 75-80 %. Diastolic dysfunction is present. . LV flattened septal wall consistent with RV volume/pressure overload.. Moderate to severely dilated right ventricle. The left atrium is normal in size. The right atrium is moderately dilated. Mild mitral annular calcification. Trivial mitral valve regurgitation. The aortic valve is normal in appearance and function. The aortic valve is tri-leaflet. Trivial aortic valve regurgitation. The tricuspid valve is normal in appearance and function. Mild tricuspid regurgitation is present. The pulmonary artery pressure is severely increased. RVSP is 78-88mmHG.. The pulmonic valve is normal in appearance and function. Mild pulmonic valve regurgitation is noted. The aorta is normal. Trivial anterior pericardial effusion. Compared to the study dated 08/05/2017 the right atrial and ventricular enlargement are new. The tricuspid regurgitation has increased formtrivial to mild and the pulmonary artery peak pressure was previously 35mmHg and is now consistent with severe pulmonary pressure hypertension consistent with known pulmonary artery embolus and right heart strain. Measurements: Chambers Valvular Assessment AV/MV Valvular Assessment TV/PV Patient: NELLY GUZMAN Study Date: 06/02/2018 Page 1 of 2 12:27 PM Normal Normal Normal Name Value Range Name Value Range Name Value Range IVSd (2D): 0.6 cm (0.6 cm-1.1 AV Vmax: 1.13 m/s (1 m/s-1.7 TR Vmax: 4.13 mm/s ( - ) cm) m/s) TR PGmax: 68 mmHg ( - ) LVDd (2D): 4.3 cm (3.9 cm-5.3 AV maxP mmHg ( - ) syst. PAP: 78 mmHg ( - ) cm) AV meanP mmHg ( - ) LVDs (2D): 2.4 cm (2.1 cm-4 MV E Vmax: 0.40 m/s ( - ) cm) MV A Vmax: 0.66 m/s ( - ) LVPWd (2D): 1.0 cm ( - ) MV E/A: 0.61 ( - ) EF Range: 75-80 % Continued Measurements: Chambers Valvular Assessment AV/MV Valvular Assessment TV/PV Name Value Name Value Name Value LADs: 3.2 cm MV E/E' Septal: 9.40 CVP (est.): 10 mmHg LADs Lon.2 cm MV E/E' Lateral: 6.30 LA Area: 15.7 cm2 LA Volume: 39 ml LA Volume Index: 21.5 ml/m2 Additional Vessels Name Value Ao Ascendin.4 cm Findings: Left Ventricle: The left ventricle cavity is small. No LV hypertrophy. Global hypercontractility of the left ventricle. The ejection fraction is estimated to be 75-80 %. Diastolic dysfunction is present. . LV flattened septal wall consistent with RV volume/pressure overload.. Right Ventricle: Moderate to severely dilated right ventricle. Left Atrium: The left atrium is normal in size. Right Atrium: The right atrium is moderately dilated. Mitral Valve: Mild mitral annular calcification. Trivial mitral valve regurgitation. Aortic Valve: The aortic valve is normal in appearance and function. The aortic valve is tri-leaflet. Trivial aortic valve regurgitation. Tricuspid Valve: The tricuspid valve is normal in appearance and function. Mild tricuspid regurgitation is present. The pulmonary artery pressure is severely increased. RVSP is 78-88mmHG.. Pulmonic Valve: The pulmonic valve is normal in appearance and function. Mild pulmonic valve regurgitation is noted. Aorta: The aorta is normal. Pericardium: Trivial anterior pericardial effusion. (No Signature Object) Patient: NELLY GUZMAN Study Date: 06/02/2018 Page 2 of 2 12:27 PM [id number]
--- NOTE | 2018-06-02 15:33 | GCON ---
[f rep st] CONSULTATION CARDIOLOGY CONSULTATION DATE OF CONSULTATION: 06/02/2018 CHIEF COMPLAINT: "I'm having chest pressure and fatigue." HISTORY OF PRESENT ILLNESS: The patient is a 77-year-old patient with a history of hypertension and atrial tachycardia, who presented to the emergency department today with complaints of chest pressure and generalized malaise, which has been present for several days. Approximately 20 days ago, she un derwent a left knee replacement under the care of Dr. Cardoso. Her postoperative course was complicat ed by left lower extremity swelling and discomfort. She had difficulty getting her compression stock ings on and off the affected extremity. On or Saturday, she slept with her feet above the pos ition of her head and noticed that her leg swelling was improved. However, shortly thereafter, began to experience chest pressure in her central chest, which did not radiate; she did not have radiation to her neck, arms, back, or jaw. She did not have nausea or vomiting. She did have a generalized f eeling of malaise and did not feel well. She was not overly depressed and does not have a history of depression, but did feel somewhat ambivalent about her survival. Her daughter brought her to the hospital for further evaluation because she was feeling so poorly, an d the patient was evaluated here in the emergency department under the care Dr. Yolanda Knott. The rachid rouse was found to have an abnormal EKG with evidence of new and diffuse T-wave inversions in lead II I, as well as V1 through V6, with a negative troponin x2, as well as a significant elevation in her D -dimer. For this reason, the patient received a chest x-ray which was unremarkable, but ultimately, a CT of the chest revealed that the patient had moderate bilateral pulmonary emboli and nonocclusive thrombus in the distal right and left main pulmonary artery, and segmental thrombosis of the right mi ddle lobe, lingula, and bilateral lower lobes. There was no evidence of right heart dilation on this study, but an echocardiogram was ordered demonstrating new right atrial and right ventricular enlarg ement with significant elevation of the pulmonary artery pressure from 35 as measured last July to on today's examination, when considering venous pressure, in addition to right ventricular systo lic pressure as measured by the tricuspid regurgitation jet. Specifically, the anterior wall appeare d to move normally on the left ventriculogram, which would be inconsistent with anterior ischemia or infarction. PAST SURGICAL HISTORY: Significant for a total knee arthroplasty 10 years ago in 2008, as well as a left total knee arthroplasty on 05/13/2018, under the care of Dr. Cardoso. PAST MEDICAL HISTORY: Significant for hypertension, dyslipidemia, mild sleep apnea treated with posi tioning, and atrial arrhythmia. History of multinodular goiter. SOCIAL HISTORY: Pertinent for the fact that she is and retired. She does not smoke or use i llicit drugs. She has an occasional social beverage. ALLERGIES: She is allergic to Tylenol. HOME MEDICATIONS: Include hydrochlorothiazide 12.5 mg p.o. daily, lisinopril 5 mg p.o. daily, metopr olol 25 p.o. at bedtime, naproxen sodium 220 mg p.o. twice daily as needed for pain postoperatively. She also takes red yeast rice and CoQ10. FAMILY HISTORY: Pertinent for congestive heart failure, emphysema, and breast cancer. REVIEW OF SYSTEMS: A 10-point review of systems was reviewed and is otherwise negative, except for a s stated in the HPI. PHYSICAL EXAMINATION: VITAL SIGNS: On 2 L by nasal cannula reveal a blood pressure of 124/73, pulse 80 and regular, respirations 16 and unlabored, oxygen saturation is 98% on 2 L by nasal cannula. Te mperature 36.4. NECK: She does have thyroid enlargement consistent with her history of a multinodul ar goiter. Her neck reveals mild JVD with V-waves consistent with tricuspid regurgitation when she i s in a recumbent position. She does not have a carotid bruit. HEART: Reveals a normal S1 and S2 wi thout S3, S4. I do not appreciate accentuation of the pulmonary sound. I do not appreciate a murmur . LUNGS: Clear to auscultation bilaterally without wheezes, rales, or rhonchi. ABDOMEN: Benign wi th positive bowel sounds. It is nondistended, nontender. I do not appreciate hepatosplenomegaly. E XTREMITIES: Reveal a healing incision over the left knee consistent with a left knee arthroplasty wh ich was recent, and Steri-Strips are still intact. There is no evidence of erythema plus or drainage . The incision does not appear to be infected. She has bilateral 1+ pitting edema of the lower extr emities bilaterally, slightly worse on the left than the right, but no appreciable erythema or palpab le cords are noted. She has good capillary refill distally, and her pulses are intact. LABORATORY STUDIES: White count of 9, H and H are 13.7 and 43.4, platelet count 242; neutrophils are 80.5, lymphocytes 10.3, consistent with a left shift. Her PT/INR is 13.7 and 1.03, with a D-dimer o f 19.49, upper limits of normal is 0.5. Her chemistry reveals a sodium 134, potassium 4.8, BUN and c reatinine are 28 and 0.8, glucose of 113. Point of care troponin is 0.04 and from the lab is 0.028. There was slight hemolysis of the sample. Her EKG reveals normal sinus rhythm with diffuse T-wave i nversions in II, III, aVF, V1, V2, V3, V4, V5, and V6, and when compared to an old EKG from my office , all of these T-wave inversion changes are new. There is specifically no evidence of ST-segment ashlyn vation in any of the mentioned leads. I reviewed her chest x-ray and CT of her chest with the radiol ogist inhalation therapist, and there did appear to be bilateral pulmonary emboli. In addition, it appears that h er LAD arises anomalously from the right coronary cusp and courses anteriorly to the pulmonary artery before arriving to supply blood flow to the left anterior chest. There is specifically no evidence of calcification of the coronary, so no evidence of significant or radiographic evidence of atheroscl erosis. The echocardiogram I reviewed specifically, and please see the full report under CardioSourc e. Basically, the patient has acute right atrial and right ventricular enlargement with significant elevation of the PA pressure as estimated by the tricuspid regurgitation jet from last July to be tween 78 and 88, depending on the true venous pressure. The right ventricular systolic pressure is e stimated to be 78 mmHg, which would be a significant increase and likely caused by her bilateral pulm onary emboli. IMPRESSION AND PLAN: 1. Bilateral pulmonary emboli. I have discussed the patient's case with Dr. Yolanda Knott, as well a s with Dr. Tim Pruett. I think the patient should be admitted to the ICU given her age and findings o f her echocardiogram and EKG. I do think she has significant right heart strain at the present time with stable vital signs. I certainly think she should be anticoagulated fully with intravenous hepar in. I plan to do a stat ultrasound of her bilateral lower extremities to see if residual volume of c lot is located within her lower extremities on either side. If there is evidence of residual clot wi thin the lower extremities, especially if it is mobile and appears to be at risk for recurrent embolu s, a more aggressive strategy in regard to anticoagulation could be considered, including either cath eter-directed thrombolysis with tPA versus tPA being given via a pulmonary embolus protocol. Obvious ly, the downside to giving an elderly lady tPA would be a risk for intracranial hemorrhage, as well a s a possible risk of bleeding into the left knee, although we are a ways out from surgery and I think that risk would be relatively low at this point. Certainly if she becomes hemodynamically unstable, she could be considered for either intravenous or directed mechanical thrombolysis with the help of an interventional radiologist. 2. The patient's EKG is abnormal, and I think this represents right heart strain, and the anterior p recordial changes are likely coming from her right ventricle. I think this is unlikely to represent significant coronary disease given that her calcium score has been known to be 0 as recently as last year, and she does not have evidence of calcification on the coronary. A curiosity more than anythin g else would be the fact that her left-sided anterior circulation appears to arise anomalously from t he right coronary cusp and courses anterior to the pulmonary artery, so not in the dangerous position between the great vessels. I think we should cycle her brain type natriuretic peptide levels as wel l as her troponins, and to obtain serial EKG. If her condition does not change, it may be reasonable to repeat her echocardiogram as a limited study to see if her right ventricle is improving in regard to its function as she is treated for bilateral pulmonary emboli. Copy requested to: Primary Care Physician /[id number]/MODL
[2018-06-02] MEDS: NS 1,000 ML IV SCH (19:53)
[2018-06-02] MEDS ORDERED: METOPROLOL TARTRATE 25 MG TAB PO SCH (21:00)
[2018-06-03 06:03] LABS: PLATELET COUNT 195 10^3/uL (150-400)
[2018-06-03] MEDS: NS 1,000 ML IV SCH (07:00)
[2018-06-03] MEDS ORDERED: HEPARIN 10,000 UNIT/10 ML MDV (1,000 UNIT/ML) IVP PRN (08:12)
[2018-06-03] MEDS ORDERED: LISINOPRIL 5 MG TAB PO SCH (09:00)
[2018-06-03] MEDS ORDERED: HYDROCHLOROTHIAZIDE 25 MG TAB PO SCH (09:00)
[2018-06-03] MEDS: HEPARIN/DEXTROSE 500 ML IV SCH (09:09)
--- NOTE | 2018-06-03 09:42 | HOSPPROG ---
Hospitalist Progress Note Assessment/Plan: 77 yo F w PE w large clot burden, severe pulm htn and R heart strain PE: heparin gtt not a candidate for lytics give clinical stabilty despite large clot burden and RVSP, R ventricle findings lytics would put her recent knee arthroplasty at risk and should be used in refractory shock only 1. hold bp meds 2. maintain euvolemia 3. repeat echo 06/04 ekg changes: attributable to R heart strain DVT: probable candidate for IVC filter recent TKA: rec ROM pt for now pain well controlled dispo: PCU 40 min crit care Subjective: case d/w dr shaffer. feels well. no hemoptysis. still w deep anterior T wave inversions (ekg interp by me) Objective: Vital Signs Temp Pulse Resp BP Pulse Ox 36.7 C 76 19 129/73 H 99 06/03/18 08:00 06/03/18 08:00 06/03/18 08:00 06/03/18 08:00 06/03/18 08:00 Laboratory Results 06/03/18 05:50 06/03/18 05:50 06/02/18 06/03/18 06/04/18 05:59 05:59 05:59 Intake Total 1590 Output Total 400 Balance 1190 PT 13.7 SEC (12.0-15.0) 06/02/18 10:30 INR 1.03 (0.83-1.16) 06/02/18 10:30 - Physical Exam Constitutional: no apparent distress, appears nourished Eyes: PERRL, anicteric sclera Ears, Nose, Mouth, Throat: moist mucous membranes, hearing normal Cardiovascular: regular rate and rhythym, no murmur, rub, or gallop, No tachycardia Respiratory: no respiratory distress, no rales or rhonchi Gastrointestinal: normoactive bowel sounds, soft, non-tender abdomen Genitourinary: no bladder fullness, No sal in urethra Skin: warm, normal color Musculoskeletal: full muscle strength, no muscle tenderness Neurologic: AAOx3 ICD10 Worksheet Patient Problems: Problems Problem Status Onset Pulmonary embolism Acute Arthritis of knee, left Acute
--- NOTE | 2018-06-03 14:59 | ASMTCMCOM ---
CM Note CM Note Notes: Pt is a 77 yo F who had a knee replacement a few weeks ago presented with chest pressure, weakness, and shortness of breath. Pt is . Her daughter brought her into the hospital. Discharge plans are TBD at this point. CM to follow. Plan: TBD Date Signed: 06/03/2018 02:59 PM Electronically Signed By:SHAYY Montano
--- NOTE | 2018-06-03 16:08 | PDCARPN ---
Cardiology Progress Note Chief Complaint: PE/cp/dyspnea Assessment/Plan: Assessment: 77F PMH htn, PAT, who presented with chest pressure, malaise, and new BRAVO. Recent L TKR 3 weeks ago. Found to have mod-large volume bilateral PE. #. chest pressure: likely related to PE continue heparin ECG abnormalities likely related to PE/ trop neg #. htn: BP appears controlled not on home meds currently #. PE: per cutch cleaner and hospital med management #. pulmonary htn: RVSP 88 on recent echo related to RV strain 06/03/18 16:05 Subjective: Not short of breath but has not been ambulating. Reviewed/Discussed With: hospitalist (Dr. Bruce) Objective: Vital Signs (8 Hrs) Temp Pulse Resp BP Pulse Ox 06/03/18 16:00 98.4 F 86 18 126/68 H 97 06/03/18 14:00 90 24 H 120/59 L 92 06/03/18 12:00 98.1 F 75 18 122/76 H 99 06/03/18 10:00 73 21 H 121/91 H 100 Intake/Output (24 Hrs) 06/02/18 06/03/18 06/04/18 05:59 05:59 05:59 Intake Total 1590 1200 Output Total 400 Balance 1190 1200 Intake: Oral (ml) 400 IV Infused (ml) 1190 1200 Heparin/Dextrose 500 ml @ 248 As Directed IV CONT DEONDRE Rx#:[id number] Ns 1,000 ml @ 100 mls/hr 942 1200 IV CONT DEONDRE Rx#: [id number] Output: Urine (ml) 400 Toilet 400 Other: Weight 70.307 kg Output Comment Toilet voidx 1unmeasured Number of Voids Toilet 2 1 Number of Stools Toilet 1 Result Diagrams: 06/03/18 05:50 06/03/18 05:50 Cardiac Labs: Cardiac Lab Results (72 Hrs) 06/03/18 06/03/18 06/02/18 05:50 05:50 21:00 Troponin I Cancelled 0.018 0.024 Telemetry: SR - Physical Exam Constitutional: healthy appearing, no apparent distress Cardiovascular: regular rate and rhythm Respiratory: clear to auscultate bilat, no crackles Neurologic: AAOx3 Psychiatric: cooperative, interactive ICD10 Worksheet Patient Problems: Problems Problem Status Onset Arthritis of knee, left Acute Pulmonary embolism Acute
--- NOTE | 2018-06-03 16:52 | CPEKG ---
Test Reason : OPEN Blood Pressure : / mmHG Vent. Rate : 089 BPM Atrial Rate : 089 BPM P-R Int : 218 ms QRS Dur : 079 ms QT Int : 438 ms P-R-T Axes : 078 014 -65 degrees QTc Int : 534 ms Sinus rhythm Borderline prolonged TX interval Abnormal T, consider ischemia, diffuse leads Prolonged QT interval Confirmed by Yolanda Knott ([id number]) on 06/03/2018 4:51:43 PM Referred By: Yolanda Knott Confirmed By:Yolanda Knott
--- NOTE | 2018-06-03 17:49 | GCON ---
[f rep st] CONSULTATION PULMONARY/CRITICAL CARE CONSULTATION DATE OF CONSULTATION: 06/03/2018 REFERRING PHYSICIAN: Juliano Magaña MD REASON FOR REFERRAL: Evaluation and management of pulmonary embolism and pulmonary hypertension. HISTORY: Ms. White is a 77-year-old woman who was in her usual state of good health when she under went left total knee replacement [address] Cardoso[address] She had some left lower extremity swelli ng and discomfort, but it has improved with elevation. Over a few days ago, she started to have some chest pressure in her central chest that was nonradiating. She had no associated nausea, vomiting, or pleurisy. She also had malaise. Her daughter brought to the hospital and she was seen in the [facility] department where an evaluation included an ECG that showed some diffuse T-wave changes. A CT scan of the chest showed moderate bilateral pulmonary emboli. An echocardiogram showed pulmonary hyp ertension with some right heart strain. The patient was started on anticoagulation and reports curre ntly that she is not particularly dyspneic, although she has been sitting in a chair due to activity restrictions imposed by the pulmonary embolism/DVT. She denies any chest pain at rest. PAST MEDICAL HISTORY: 1. Hypertension. 2. Mild sleep apnea, treated with positional therapy. 3. History of atrial arrhythmia. 4. History of multinodular goiter. MEDICATIONS: At the time of admission include hydrochlorothiazide, lisinopril, metoprolol, Naprosyn. ALLERGIES: Tylenol. SOCIAL HISTORY: The patient is and retired. She does not smoke and drinks alcohol just occa sionally socially. FAMILY HISTORY: Unremarkable. REVIEW OF SYSTEMS: A 10-point review of systems adds nothing to the history of present illness. PHYSICAL EXAMINATION: GENERAL: The patient is awake, alert, in no acute distress. VITAL SIGNS: Bl ood pressure is 126/68, with a heart rate of 86. She is afebrile. Oxygen saturations are 97% on 2 L . HEENT: Normocephalic and atraumatic. No icterus. NECK: No JVD. Trachea is midline. CHEST: S he has a few rales in both bases. CARDIAC: Regular rate and rhythm without murmur. ABDOMEN: Soft, nontender. Bowel sounds are present. EXTREMITIES: No clubbing, cyanosis, or edema. NEURO: The p atient is awake, alert. She has no gross motor or sensory deficits. LABORATORY: A hemoglobin is 11.1, down from 13.7 at admission. Her white blood count is 5.2. Chemi stry group is unremarkable. A BNP is 7320. A troponin is 0.018, down from 0.028. A CT scan of the chest shows moderate, large volume of pulmonary emboli bilaterally. There is some minimal basilar at electasis. The images were reviewed by me. An echocardiogram shows an ejection fraction of 75% to 8 0% with global hypercontractility and some diastolic dysfunction. She has an estimated RVSP of 78 to 88 mmHg. The LV septal wall is flat and consistent with RV pressure and volume overload. This is c hanged compared to a prior echocardiogram, which showed a normal pulmonary artery pressure and no RV strain. An ultrasound demonstrates bilateral thromboses in the mid-distal calf, with no thromboses m ore proximally. ASSESSMENT: 1. Pulmonary embolism. The patient has a large/submassive bilateral pulmonary emboli. She also has small calf vein thromboses bilaterally. Although her echocardiogram shows significant RV strain and severe pulmonary hypertension, she is minimally symptomatic, with chest discomfort that has resolved as long as she is not active and stable vital signs. Her systolic blood pressure was as low as 100, but has been in the 120s today, and she has not been tachycardic. She has minimal oxygen needs and is not particularly tachypneic. I think that given her overall clinical findings, I think that thera py with anticoagulation is appropriate. Although the echocardiogram findings are concerning, the cli nical findings do not support the use of thrombolytics at this time. Additionally, she would have so me increased risk of hemorrhagic complications in the knee due to recent surgery. I have reviewed th e case with interventional radiology, and they could potentially perform thrombectomy, but I do not t hink that therapy is warranted given her clinical stability. Since her calf vein thromboses are quit e small and stable and the patient is tolerating anticoagulation, I do not think an IVC filter is str ongly indicated. RECOMMENDATIONS: 1. Continue anticoagulation with heparin. 2. Repeat echocardiogram tomorrow. 3. The patient could be transferred to the PCU. 4. Switch to an oral anticoagulant with the plan to discharge in 2-3 days if clinically stable. /[id number]/MODL
[2018-06-04 06:08] LABS: INR 1.19 (0.83-1.16); PROTIME(PATIENT) 15.3 SEC (12.0-15.0)
[2018-06-04] MEDS: HEPARIN/DEXTROSE 500 ML IV SCH (08:33)
--- NOTE | 2018-06-04 08:57 | HOSPPROG ---
Hospitalist Progress Note Assessment/Plan: 77 yo F w PE w large clot burden, severe pulm htn and R heart strain PE: heparin gtt not a candidate for lytics give clinical stabilty despite large clot burden and RVSP, R ventricle findings lytics would put her recent knee arthroplasty at risk and should be used in refractory shock only 1. hold bp meds 2. maintain euvolemia 3. repeat echo 06/04 ekg changes: attributable to R heart strain DVT: continue heparin gtt ample discussion of IVC filter hold for now recent TKA: rec ROM pt for now pain well controlled dispo: PCU Subjective: no events on tele (interp by me). 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 Objective: Vital Signs Temp Pulse Resp BP Pulse Ox 36.6 C 76 12 133/74 H 97 06/04/18 04:00 06/04/18 04:00 06/04/18 04:00 06/04/18 04:00 06/04/18 04:00 Laboratory Results 06/03/18 05:50 06/03/18 05:50 06/03/18 06/04/18 06/05/18 05:59 05:59 05:59 Intake Total 1590 3027 Output Total 400 400 Balance 1190 2627 PT 15.3 SEC (12.0-15.0) H 06/04/18 05:45 INR 1.19 (0.83-1.16) H 06/04/18 05:45 - Physical Exam Constitutional: no apparent distress, appears nourished Eyes: PERRL, anicteric sclera Ears, Nose, Mouth, Throat: moist mucous membranes, hearing normal Cardiovascular: regular rate and rhythym, no murmur, rub, or gallop Respiratory: no respiratory distress, no rales or rhonchi Gastrointestinal: normoactive bowel sounds, soft, non-tender abdomen Genitourinary: no bladder fullness, No sal in urethra Skin: warm, normal color Musculoskeletal: full muscle strength, no muscle tenderness Neurologic: AAOx3, sensation intact bilaterally Psychiatric: interacting appropriately ICD10 Worksheet Patient Problems: Problems Problem Status Onset Pulmonary embolism Acute Arthritis of knee, left Acute
--- NOTE | 2018-06-04 12:54 | PDCARPN ---
Cardiology Progress Note Assessment/Plan: Assessment: Bilateral and at least moderate pulmonary emboli with minimal residual thrombus in the smaller veins below the knee bilaterally. The echocardiogram from today reveals improvement in right ventricular systolic pressure from 78 to 50 mmHg and the RV appears to be uriel more normally and is smaller in size. THE EKG and the BNP levels have also improved. I think the patient may benefit from overnight telemetry and IV Heparin and then to consider transitioning her to Eliquis 10 mg twice daily for 7 days and then 5mg twice daily. I have discussed the patient with both Dr. Pruett and Dr. Bruce. Plan: As above. 06/04/18 12:50 Subjective: My breathing is improved. Reviewed/Discussed With: family, hospitalist, multidisciplinary team Time Spent with Patient: greater than 25 minutes Time Spent with Patient: Greater than 25 minutes spent on this patients care, greater than 50% of time spent counseling, educating, and coordinating care regarding the above mentioned plan. Objective: Vital Signs (8 Hrs) Temp Pulse Resp BP Pulse Ox 06/04/18 11:54 36.6 C 87 12 128/75 H 98 06/04/18 09:00 36.4 C 79 24 H 139/85 H 94 Intake/Output (24 Hrs) 06/03/18 06/04/18 06/05/18 05:59 05:59 05:59 Intake Total 1590 3027 Output Total 400 400 Balance 1190 2627 Intake: Oral (ml) 400 1100 IV Infused (ml) 1190 1927 Heparin/Dextrose 500 ml @ 248 727 As Directed IV CONT DEONDRE Rx#:[id number] Ns 1,000 ml @ 100 mls/hr 942 1200 IV CONT DEONDRE Rx#: [id number] Output: Urine (ml) 400 400 Toilet 400 400 Other: Weight 70.307 kg Output Comment Toilet voidx 1unmeasured Number of Voids Toilet 2 1 Number of Stools Toilet 1 Result Diagrams: 06/03/18 05:50 06/03/18 05:50 Cardiac Labs: Cardiac Lab Results (72 Hrs) 06/03/18 06/03/18 06/02/18 05:50 05:50 21:00 Troponin I Cancelled 0.018 0.024 EK lead EKG shows significant improvement in diffuse T wave inversions and changes. Telemetry: Occasional PAC s and occasional PVCs. No significant tachy or bradydysrhythmia. Echocardiogram: Please see full report under Cardio Workflow. The RV pressure is down from 78mmHg to 45-50mmHg. - Physical Exam Constitutional: WDWN, no apparent distress Eyes: PERRL, EOMI, anicteric sclera Ears, Nose, Mouth, Throat: moist mucous membranes Cardiovascular: regular rate and rhythm, systolic murmur Respiratory: clear to auscultate bilat Gastrointestinal: normoactive bowel sounds, no tenderness Neurologic: AAOx3 Psychiatric: cooperative, interactive - . Pending Discharge Within 24 Hours: Yes ICD10 Worksheet Patient Problems: Problems Problem Status Onset Arthritis of knee, left Acute Pulmonary embolism Acute
--- NOTE | 2018-06-04 14:46 | PDMN ---
Medical Necessity Medical necessity: Change to IP, as of 06/04/18, per MD & MCG [id number]; los >2 mn for ongoing management of bilateral PE w/large clot burden, severe pulmonary htn & R heart strain; requiring further monitoring & Heparin gtt; hx recent TKA
--- NOTE | 2018-06-04 16:33 | CPEKG ---
Test Reason : OPEN Blood Pressure : / mmHG Vent. Rate : 082 BPM Atrial Rate : 082 BPM P-R Int : 183 ms QRS Dur : 085 ms QT Int : 500 ms P-R-T Axes : 079 010 -60 degrees QTc Int : 584 ms Sinus rhythm Abnormal T, probable ischemia, widespread Prolonged QT interval Confirmed by Yolanda Knott ([id number]) on 06/04/2018 4:32:13 PM Referred By: Chelsea Lujan Confirmed By:Yolanda Knott
--- NOTE | 2018-06-04 17:37 | ECHO ---
[email or web address] [address] [address] Main: [phone] Fax: Transthoracic Echocardiogram Name: NELLY GUZMAN MR#: [id number] Study Date: 06/04/2018 Study Time: 09:32 AM Date of : 1940 Age: 77 year(s) Height: 170.2 cm (67 in.) Weight: 70.31 kg (155 lb.) BSA: 1.81 m2 Gender: Female Examination: Limited Echo Indication: limited F/U RVSP and RV; patient with large PE Image Quality: Adequate Contrast: Requested by: Nic Bruce BP: 139 mmHg/85 mmHg Heart Rate: Rhythm: Indication: limited F/U RVSP and RV; patient with large PE Procedure Staff Brim Pouncer: Randi Nicole RDCS Reading Physician: Isamar Camacho MD Requesting Provider: Conclusions: Mildly dilated right ventricle. RV systolic function is mildly decreased.. Mild tricuspid regurgitation is present. Right ventricular systolic pressure measures 60mmHg. The pulmonary artery pressure is moderately to severely increased. Trivial pericardial effusion. Compared with 06/02/2018 RV size and systolic function have improved. Estimated PA systolic pressures are lower previously 78 mm of mercury. Measurements: Chambers Valvular Assessment AV/MV Valvular Assessment TV/PV Normal Normal Normal Name Value Range Name Value Range Name Value Range RVDd(2D): 4.5 cm (1.9 cm-3.8 TR Vmax: 3.53 mm/s ( - ) cmmm) TR PGmax: 50 mmHg ( - ) syst. PAP: 60 mmHg ( - ) Continued Measurements: Chambers Valvular Assessment TV/PV Name Value Name Value TAPSE: 1.6 cm CVP (est.): 10 mmHg Findings: Right Ventricle: Patient: NELLY GUZMAN Study Date: 06/04/2018 Page 1 of 2 09:32 AM Mildly dilated right ventricle. RV systolic function is mildly decreased.. Tricuspid Valve: The tricuspid valve appears normal. Mild tricuspid regurgitation is present. Right ventricular systolic pressure measures 60mmHg. The pulmonary artery pressure is moderately to severely increased. IVC: The IVC is mildly dilated. Pericardium: Trivial pericardial effusion. (No Signature Object) Patient: NELLY GUZMAN Study Date: 06/04/2018 Page 2 of 2 09:32 AM [id number]
[2018-06-05] MEDS: HEPARIN/DEXTROSE 500 ML IV SCH (07:40)
--- NOTE | 2018-06-05 10:42 | HOSPPROG ---
Hospitalist Progress Note Assessment/Plan: 77 yo F w PE w large clot burden, severe pulm htn and R heart strain PE: heparin gtt not a candidate for lytics give clinical stabilty despite large clot burden and RVSP, R ventricle findings lytics would put her recent knee arthroplasty at risk and should be used in refractory shock only 1. hold bp meds 2. maintain euvolemia 3. repeat echo 06/04 improved which is reassuring 06/05- continue heparin gtt through 06/06 for five days total check ambulatory RA sat. home o2 if desats home on elquis 10 bid X 7 days then 5 bid ekg changes: attributable to R heart strain DVT: continue heparin gtt ample discussion of IVC filter hold for now recent TKA: rec ROM pt for now pain well controlled dispo: PCU Subjective: echo w decreased PA pressure-78 down to 60. case d/w dr maradiaga Objective: Vital Signs Temp Pulse Resp BP Pulse Ox 36.6 C 84 24 H 138/80 H 90 L 06/05/18 07:37 06/05/18 07:37 06/05/18 07:37 06/05/18 07:37 06/05/18 07:37 Laboratory Results 06/05/18 03:16 06/04/18 06/05/18 06/06/18 05:59 05:59 05:59 Intake Total 1531 Output Total 300 300 Balance 1231 -300 PT 15.3 SEC (12.0-15.0) H 06/04/18 05:45 INR 1.19 (0.83-1.16) H 06/04/18 05:45 - Physical Exam Constitutional: no apparent distress, appears nourished Eyes: PERRL, anicteric sclera Ears, Nose, Mouth, Throat: moist mucous membranes, hearing normal Cardiovascular: regular rate and rhythym, no murmur, rub, or gallop Respiratory: no respiratory distress, no rales or rhonchi Gastrointestinal: normoactive bowel sounds, soft, non-tender abdomen Genitourinary: sal in urethra Skin: warm Musculoskeletal: full muscle strength Neurologic: AAOx3 ICD10 Worksheet Patient Problems: Problems Problem Status Onset Pulmonary embolism Acute Arthritis of knee, left Acute
--- NOTE | 2018-06-05 15:47 | ASMTCMCOM ---
CM Note CM Note Notes: CM met w/ pt for dispo planning. Therapies are recommending HC. Pt [facility] agree[facility] CM confirmed pts address and phone number. CM available for changes. Plan: [facility]; PT, OT, RN Date Signed: 06/05/2018 03:46 PM Electronically Signed By:HSAYY Chandler
[2018-06-06] MEDS: HEPARIN/DEXTROSE 500 ML IV SCH (03:34)
[2018-06-06 11:09] VITALS: BP 125/69
[2018-06-06] MEDS ORDERED: APIXABAN 5 MG TAB PO SCH (11:30)
--- NOTE | 2018-06-06 13:06 | PDIAF ---
- Diagnosis Diagnosis: PE Code Status: Full Code - Medication Management Discharge Medications: electronically signed and located in the Home Medication List. - Orders Services needed: Home Care, Registered Nurse, Physical Therapy, Occupational Therapy Home Care Face to Face: I certify that this patient was under my care and that I had the required [id number] encounter meeting the encounter requirements on the discharge day. My findings support the fact that the patient is homebound as defined in Home Care Face to Face Continued: CMS Chapter 7 Medicare Benefits Manual 30.1.1 , The condition of the patient is such that there exists a normal inability to leave home and consequently, leaving home would require a considerable and taxing effort. Diet Recommendation: no restrictions on diet Additional Instructions: Minimize Naprosyn use while on Eliquis Recommend 3-6 months of blood thinner Restart Blood Pressure medications tomorrow - Follow Up Care Current Providers and Referrals: NONE *PRIMARY CARE P,. [Unknown] - As per Instructions
--- NOTE | 2018-06-06 13:36 | ASMTLACE ---
LACE Length of stay for Answers: 2 days current admission Acuity / Level of Answers: Yes Care: Did the patient have an inpatient admission? Comorbidities - select Answers: Other Notes: HTN; HLD all that apply # of Emergency department Answers: 1-2 visits in the last 6 months Score: 7 Date Signed: 06/06/2018 01:35 PM Electronically Signed By:Verito Saunders RN
--- NOTE | 2018-06-06 13:59 | ASMTDCNOTE ---
Case Management Discharge Discharge Order Complete? Answers: Yes Patient to Obtain Answers: via Family Medications Transportation Arranged Answers: Family/Friends Faxed Final Orders Answers: Yes Notes: HC Agency/Facility Transfer Answers: Yes Notes: to [facility] Report Printed & Faxed to Receiving Agency Discharge Comments Notes: 06/06/2018 Case Management note Faxed final orders to [facility]. Notified on the phone. Case Management d/c poc: home with [facility] PT Date Signed: 06/06/2018 01:59 PM Electronically Signed By:Vertio Saunders RN
--- NOTE | 2018-06-06 14:09 | ASDISCHSUM ---
Discharge Information Plan Status:Home with Home Health Medically Cleared to Leave: Discharge Date: D/C Disposition:Home Health Service ADT D/C Disposition:Home Health Service Projected Discharge Date:06/05/2018 11:00 AM Transportation at D/C: Discharge Delay Reason: Follow-Up Date:06/05/2018 11:00 AM Discharge Slot: Final Diagnosis: Placement Information Referral Type:*Home Health Care Services Referral ID:[id number] Provider Name:[facility] Address 1[address] Address 2: City:[place] Selection Factors: State:[place] Patient Contact Information Contact Name:MARCI Relationship:Daughter Address:[address] City:[place] Alternate Phone: State/Zip Code:[place] [address] Email: Financial Information Financial Class:Medicare Primary Plan Desc:MEDICARE INPATIENT Primary Plan Number:[id number] Secondary Plan Desc:[facility] Secondary Plan Number:[id number] Assessment Information LACE LACE Length of stay for Answers: 2 days current admission Acuity / Level of Answers: Yes Care: Did the patient have an inpatient admission? Comorbidities - select Answers: Other Notes: HTN; HLD all that apply # of Emergency department Answers: 1-2 visits in the last 6 months Score: 7 Date Signed: 06/06/2018 01:35 PM Electronically Signed By:Verito Saunders RN BC CM Progress Note CM Note CM Note Notes: Pt is a 77 yo F who had a knee replacement a few weeks ago presented with chest pressure, weakness, and shortness of breath. Pt is . Her daughter brought her into the hospital. Discharge plans are TBD at this point. CM to follow. Plan: TBD Date Signed: 06/03/2018 02:59 PM Electronically Signed By:SHAYY Montano [facility] CM Progress Note CM Note CM Note Notes: CM met w/ pt for dispo planning. Therapies are recommending HC. Pt is agreeable to HC services through [facility]. [facility] is able to accept. CM confirmed pts address and phone number. CM available for changes. Plan: [facility]; PT, OT, RN Date Signed: 06/05/2018 03:46 PM Electronically Signed By:SHAYY Chandler Case Management Discharge Plan Note Case Management Discharge Discharge Order Complete? Answers: Yes Patient to Obtain Answers: via Family Medications Transportation Arranged Answers: Family/Friends Faxed Final Orders Answers: Yes Notes: [facility] Agency/Facility Transfer Answers: Yes Notes: to [facility] Report Printed & Faxed to Receiving Agency Discharge Comments Notes: 06/06/2018 Case Management note Faxed final orders to [facility]. Notified on the phone. Case Management d/c poc: home with [facility] PT Date Signed: 06/06/2018 01:59 PM Electronically Signed By:Verito Saunders RN Intervention Information Intervention Type:*MICHEL-Signed Date of Service:06/03/2018 10:36 AM Patient Type:Observation Staff Member:Jamia Garner Hours: Discipline: Severity: Comment:
--- NOTE | 2018-06-06 16:56 | GDS ---
[f rep st] DISCHARGE SUMMARY DISCHARGE DIAGNOSES: 1. Acute pulmonary embolus. 2. Right heart strain and pulmonary hypertension. 3. Recent total knee arthroplasty. 4. Bilateral deep venous thrombosis. 5. Hypertension. HISTORY: The patient is a 77-year-old female who recently underwent a total knee arthroplasty and wa s on aspirin postoperatively for DVT prophylaxis. She presented with chest pain and shortness of inessa ath and was found to have large pulmonary embolus with severe pulmonary hypertension and right heart strain. Given the high risk nature of this PE, she was treated as an inpatient for 5 days on IV hepa rin drip. Repeat echocardiogram showed improvement of her RV strain. Lytics were considered, but no t administered given the fact her blood pressure was always very stable and she had recently had surg haile. She will discharge on Eliquis. Will do 10 mg b.i.d. dosing for 7 days and then reduce to 5 mg p.o. b.i.d. thereafter. She should maintain anticoagulation for 3 to 6 months as this is a provoked event. Bilateral lower extremity ultrasounds showed some small residual [id number] DVTs, but not raj significant. At the time of discharge, she was 94% on room air with a good blood pressure, no t achycardia, and feeling greatly improved. DISCHARGE MEDICATIONS: Please see computerized record for full detailed list. New medication: Eliq uis 10 mg p.o. b.i.d. for 7 days then reduce to 5 mg p.o. b.i.d. thereafter. ADDITIONAL DISCHARGE INSTRUCTIONS: 1. Minimize Naprosyn use while on Eliquis. 2. Recommend 3 to 6 months of blood thinner. 3. Okay to resume antihypertensive medications tomorrow. 4. Greater than 30 minutes' time spent arranging this discharge. Patient was seen and examined by me on the day of discharge. /[id number]/MODL
--- NOTE | 2018-06-10 14:08 | CPEKG ---
Test Reason : OPEN Blood Pressure : / mmHG Vent. Rate : 090 BPM Atrial Rate : 090 BPM P-R Int : 210 ms QRS Dur : 079 ms QT Int : 466 ms P-R-T Axes : 076 017 -66 degrees QTc Int : 571 ms Sinus rhythm Abnormal T, consider ischemia, diffuse leads Prolonged QT interval Confirmed by Jose M Cage ([id number]) on 06/10/2018 2:08:35 PM Referred By: Chelsea Lujan Confirmed By:Jose M Cage
--- NOTE | 2018-06-10 16:29 | CPEKG ---
Test Reason : OPEN Blood Pressure : / mmHG Vent. Rate : 082 BPM Atrial Rate : 082 BPM P-R Int : 164 ms QRS Dur : 076 ms QT Int : 424 ms P-R-T Axes : 075 011 -62 degrees QTc Int : 496 ms Sinus rhythm Prolonged QT Confirmed by Jose M Cage ([id number]) on 06/10/2018 4:28:19 PM Referred By: Chelsea Lujan Confirmed By:Jose M Cage
== END 2018-06-06 15:00 | disposition home health service (06) | DRG 176 ==
LOC: F2N 18:37 → F2W 06-03 17:49 → OBSVTOIN 06-04 11:35
PROVIDERS: ADMIT Internal Medicine; ATTEND Internal Medicine
DX: I26.99 Other pulmonary embolism without acute cor pulmonale (principal); I82.4Z3 Acute embolism and thrombosis of unspecified deep veins of distal lower extremity, bilateral; I27.29 Other secondary pulmonary hypertension; E78.5 Hyperlipidemia, unspecified; I10 Essential (primary) hypertension; G47.30 Sleep apnea, unspecified; Z96.653 Presence of artificial knee joint, bilateral; Z79.82 Long term (current) use of aspirin
CPT/HCPCS: 84484-ER; 85520-90; 96365; 96366; 97116-GP; 97161-GP; 97165-GO; G0378; J1644; Q9967

== ENCOUNTER → 2018-07-29 | Outpatient (CLI) | payer OTHER | LOC: FIMAGING 07:19 | PROVIDERS: ATTEND Internal Medicine | DX: E04.2 Nontoxic multinodular goiter (principal) ==

== ENCOUNTER → 2018-08-25 | Outpatient (CLI) | payer OTHER | LOC: FIMAGING 10:56 | PROVIDERS: ATTEND Otolaryngology | DX: R13.10 Dysphagia, unspecified (principal); Z85.828 Personal history of other malignant neoplasm of skin; Z86.711 Personal history of pulmonary embolism; Z96.653 Presence of artificial knee joint, bilateral | CPT/HCPCS: 92611-GN ==

== ENCOUNTER → 2018-09-29 | Outpatient (CLI) | payer OTHER | LOC: BHFA 15:30 ==